=== PATIENT | female | born 1965 | race Caucasian/White ===

== ENCOUNTER → 2020-10-01 12:52 | Outpatient (CLI) | payer BC, SELFPAY ==
--- NOTE | ~2020-10-01 | MR_ITS ---
EXAMINATION: MR lumbar spine wo con DATE: 10/01/2020 14:48 INDICATION: Low back pain. TECHNIQUE: Magnetic resonance imaging (MRI) of the lumbar spine was performed without intravenous con trast. Sequences included sagittal T2-weighted FSE, sagittal T2-weighted FS FSE, sagittal T1-weighted FSE, and axial T2-weighted FSE. COMPARISON: None FINDINGS: There is 8 degrees dextrocurvature of lumbar spine. Vertebral body heights are normal. Ther e is moderately decreased disc height at L5-S1. The distal spinal cord signal intensity is normal. Th e conus medullaris is at L1-L2. The following disc levels are specifically discussed: L1-L2: The disc does not extend beyond the endplate margin. There is no facet joint osteoarthritis. T here is no neural foraminal stenosis. There is no central canal stenosis. L2-L3: There is a right foraminal protrusion. There is mild bilateral facet joint osteoarthritis. The re is mild right neural foraminal stenosis. There is no central canal stenosis. L3-L4: The disc is mildly bulging. There is mild bilateral facet joint osteoarthritis. There is mild right neural foraminal stenosis. There is no central canal stenosis. L4-L5: The disc is mildly bulging. There is severe bilateral facet joint osteoarthritis. There is mil d bilateral neural foraminal stenosis. There is mild central canal stenosis. L5-S1: The disc is bulging. There is moderate right facet joint osteoarthritis. There is mild bilater al neural foraminal stenosis. There is mild central canal stenosis. IMPRESSION: 1. Moderate lower lumbar spondylosis. Reviewed, dictated and finalized at location A. HUSK BALER
--- NOTE | ~2020-10-01 | MR_ITS ---
EXAMINATION: MR hip RT wo con DATE: 10/01/2020 14:48 INDICATION: Right hip pain TECHNIQUE: Magnetic resonance imaging (MRI) of the right hip was performed without intravenous contr ast. Sequences included full-field axial PD-weighted FS FSE and T1-weighted FSE, coronal of the pelvi s with PD-weighted FS FSE, small field of view of the right hip with axial PD-weighted FS FSE, sagit nicky PD-weighted FS FSE and coronal PD weighted FS FSE. Additional radial T1-weighted FGR oriented ort hogonal to the acetabular rim were obtained for evaluation of the labrum. COMPARISON: None FINDINGS: Bones/labrum/cartilage: Mild lumbar dextrocurvature with moderate lower lumbar spondylosis. Normal alignment at the bilateral hips. No fracture, avascular necrosis or pathologic marrow replacing process. Labrum is normal. Part ial-thickness cartilage loss with smooth chondral surface at the anterior and posterior aspect of the left hip joint space. There is partial thickness chondral fissuring without degenerative subchondral changes at the anterosuperior left acetabulum. Fluid: Symmetric physiologic amount of fluid within both hip joints. Soft tissues: Nonspecific asymmetric increased muscle signal in the right erector spinae muscle at the level of L5 and S1. Otherwise normal and symmetric muscle bulk and signal in the pelvis and visualized proximal t highs. The iliopsoas, gluteal and proximal hamstring tendons are normal. The uterus is not identified and has likely been surgically resected. Limited evaluation of visceral organs of the pelvis is unr emarkable. No pathologically enlarged pelvic/inguinal lymphadenopathy. IMPRESSION: 1. Mild right hip osteoarthritis. 2. Nonspecific mild increased muscle signal at the inferior right erector spinae muscle at the level of L5 and S1 which is of indeterminate etiology or significance. Differential includes low-grade musc le strain, response to denervation injury or nonspecific myositis which would have a wide differentia l including infection and multiple inflammatory/rheumatologic/connective tissue diseases. Reviewed, dictated and finalized at location A. ING MACHINE COIN COLLECTOR IMPRESSION: 1. Mild right hip osteoarthritis. 2. Nonspecific mild increased muscle signal at the inferior right erector spina e muscle at the level of L5 and S1 which is of indeterminate etiology or signif icance. Differential includes low-grade muscle strain, response to denervation injury or nonspecific myositis which would have a wide differential including i nfection and multiple inflammatory/rheumatologic/connective tissue diseases.
== END ==
DX: M47.817 Spondylosis without myelopathy or radiculopathy, lumbosacral region (principal); M16.11 Unilateral primary osteoarthritis, right hip; M48.07 Spinal stenosis, lumbosacral region
CPT/HCPCS: 72148; 73721

== ENCOUNTER → 2020-10-22 08:49 | Outpatient (CLI) | payer BC, SELFPAY ==
--- NOTE | ~2020-10-22 | MR_ITS ---
EXAMINATION: MR ankle LT wo/w con DATE: 10/22/2020 10:19 INDICATION: Left ankle pain and swelling. TECHNIQUE: Magnetic resonance imaging (MRI) of the left ankle was performed without and with 15 mL Mu ltiHance intravenous contrast. Sequences included axial T1-weighted FS FSE and sagittal, coronal, and axial T2-weighted FS FSE, T1-weighted FSE, and postcontrast T1-weighted FS FSE. COMPARISON: None. FINDINGS: Medial ankle ligaments: The superficial and deep components of the deltoid ligament are normal. Lateral ankle ligaments: Anterior and posterior talofibular ligaments, calcaneofibular ligament, and posterior tibiofibular li gaments are normal. There are changes of prior sprain of anterior tibiofibular ligament characterized by increased signal intensity. Tendons: The medial and anterior ankle tendons are normal. The peroneal tendons are normal. There is mild Achi lles tendinopathy. Plantar fascia: Normal. Bones/other: Bone alignment is normal. No fracture. The talar dome is normal. There is mild osteoarthritis of firs t tarsometatarsal joint and calcaneocuboid joint. There are foci of susceptibility artifact at the sk in medial to the ankle, lateral to fibular tip, and posterior to the Achilles tendon. There is mild f atty atrophy in some of the musculature. Fluid: There is no joint effusion. IMPRESSION: 1. Mild polyarticular osteoarthritis. 2. Foci of susceptibility artifact at the medial, lateral, and posterior aspects of the ankle that ma y be small foreign bodies on the skin or in the subcutaneous fat. This would be an expected finding i s there were prior surgery at these sites. 3. Changes of prior lateral ankle sprain. Reviewed, dictated and finalized at location A. STRAP SEWER IMPRESSION: 1. Mild polyarticular osteoarthritis. 2. Foci of susceptibility artifact at the medial, lateral, and posterior aspect s of the ankle that may be small foreign bodies on the skin or in the subcutane ous fat. This would be an expected finding is there were prior surgery at these sites. 3. Changes of prior lateral ankle sprain.
--- NOTE | ~2020-10-22 | MR_ITS ---
EXAMINATION: MR foot LT wo/w con DATE: 10/22/2020 10:34 INDICATION: Left foot pain and swelling. TECHNIQUE: Magnetic resonance imaging (MRI) of the left foot was performed without and with 15 mmol M ultiHance intravenous contrast. Sequences included sagittal STIR FSE and T1-weighted FSE and short-ax is and long-axis T1-weighted FSE and T2-weighted FS FSE. Postcontrast sequences included short-axis a nd long-axis T1-weighted FS FSE. COMPARISON: None FINDINGS: Bone alignment is normal. No fracture. The bone marrow signal intensity is normal. No joint effusion. Lisfranc ligament is normal. The flexor and extensor tendons are normal. The musculature i s normal. There are foci of susceptibility artifact at the skin plantar to the first and second metat arsals. IMPRESSION: 1. Foci of susceptibility artifact at the skin plantar to the first and second metatarsals, which may be tiny foreign bodies on the skin or in the subcutaneous fat. Reviewed, dictated and finalized at location A. PRODUCTION SUPERVISOR IMPRESSION: 1. Foci of susceptibility artifact at the skin plantar to the first and second metatarsals, which may be tiny foreign bodies on the skin or in the subcutaneou s fat.
[2020-10-22 09:15] LABS: Estimated Glomerular Filt Rate > 60
== END ==
DX: M25.472 Effusion, left ankle (principal); M19.072 Primary osteoarthritis, left ankle and foot; S93.402D Sprain of unspecified ligament of left ankle, subsequent encounter; X58.XXXD Exposure to other specified factors, subsequent encounter
CPT/HCPCS: 73720; 73723; A9577

== ENCOUNTER → 2021-06-04 13:31 | Outpatient (CLI) | payer BC, SELFPAY ==
--- NOTE | ~2021-06-04 | XR_ITS ---
XR hip BI wo pelvis DATE: 06/04/2021 14:44 INDICATION: Right hip pain TECHNIQUE: AP, lateral views of each hip COMPARISON: None FINDINGS: Osteopenia. No fracture or dislocation, avascular necrosis or bone destruction of either hi p is evident. Hip joint spaces appear symmetric and relatively preserved. Surgical clips overlie the right lower abdomen. The pubic symphysis and sacroiliac joints appear intact. IMPRESSION: Osteopenia Reviewed, dictated and finalized at location B. IMPRESSION: Osteopenia
== END ==
DX: M85.851 Other specified disorders of bone density and structure, right thigh (principal)
CPT/HCPCS: 73521

== ENCOUNTER → 2021-08-18 14:50 | Outpatient (CLI) | payer BC, SELFPAY ==
--- NOTE | ~2021-08-18 | CT_ITS ---
EXAMINATION: CT abdomen pelvis w con INDICATION: Right lower quadrant pain TECHNIQUE: Computed tomographic images of the abdomen and pelvis were obtained after the administrati on of 100 cc of Omnipaque 350 intravenous contrast. The dose-length product (DLP) was 656.46 mGy-cm. Automated exposure control and iterative reconstruction technique were employed. COMPARISON: None available FINDINGS: Minimal dependent atelectasis is present in the lung bases. The heart size is normal. A Por t-A-Cath tip ends in the right atrium. There are multiple liver masses with interrupted peripheral no dular enhancement, consistent with hemangiomas. The largest measures 3.1 cm in liver segment Raoul. The gallbladder is surgically absent. Pancreas, and adrenal glands are normal. Hypoattenuating lesions o f the spleen measuring up to 1.3 cm likely reflect hemangiomas or lymphangiomas. There is an [address] of the left kidney. The right kidney is unremarkable. No pathologically enlarged abdominal or pelv ic lymph nodes are identified. There is no free intraperitoneal gas or evidence of bowel obstruction. There are surgical changes of appendectomy. There is mild lumbar spondylosis. A hemangioma is noted in the L2 vertebral body. IMPRESSION: 1. No CT correlate for the patient's symptoms. Reviewed, dictated and finalized at location A.
[2021-08-18 15:10] LABS: Estimated Glomerular Filt Rate > 60
== END ==
DX: R10.84 Generalized abdominal pain (principal); N28.1 Cyst of kidney, acquired; M47.816 Spondylosis without myelopathy or radiculopathy, lumbar region; D18.09 Hemangioma of other sites
CPT/HCPCS: 74177; Q9967

== ENCOUNTER → 2022-03-30 17:24 | Outpatient (CLI) | payer BC, SELFPAY ==
--- NOTE | ~2022-03-30 | XR_ITS ---
EXAMINATION: XR foot RT 2V INDICATION: Right foot pain TECHNIQUE: Two views of the right foot are obtained. COMPARISON: None available FINDINGS: There is mild osteoarthritis of multiple interphalangeal joints. No fracture is identified. There is dorsal soft tissue swelling of the foot overlying the distal metatarsals. An orthopedic scr ew is noted in the first metatarsal. IMPRESSION: 1. Soft tissue swelling without acute osseous abnormality. Reviewed, dictated and finalized at location F.
== END ==
DX: M79.671 Pain in right foot (principal); M79.89 Other specified soft tissue disorders
CPT/HCPCS: 73620

== ENCOUNTER → 2022-04-13 13:48 | Outpatient (CLI) | payer BC, SELFPAY ==
--- NOTE | ~2022-04-13 | MR_ITS ---
EXAMINATION: MR knee RT wo con DATE: 04/13/2022 14:28 INDICATION: Medial meniscal tear with right knee pain. TECHNIQUE: Magnetic resonance imaging (MRI) of the right knee was performed without intravenous contr ast. Sequences included coronal PD-weighted FSE, coronal PD-weighted FS FSE, sagittal T2-weighted FS E, sagittal PD-weighted FS FSE and axial PD weighted fat saturated FSE. COMPARISON: None. FINDINGS: Medial compartment: Medial meniscus is normal. Deep chondral ulceration with mild underlying cortical irregularity and mi ld subarticular edema-like signal change at the central to anterior aspect of the medial tibial plate au. Additional deep chondral ulceration without degenerative subchondral changes at the anterior weig htbearing medial femoral condyle. A severe partial thickness cartilage loss along the central weightb earing medial femoral condyle. Lateral compartment: Lateral meniscus is normal. Additional deep chondral ulceration with associated cortical irregularity and mild subarticular edema-like signal change at the central to posterior aspect of the lateral tib ial plateau. Mild partial-thickness cartilage loss along the anterior weightbearing medial femoral co ndyle. Partial-thickness chondral fissuring at the posterior weightbearing lateral femoral condyle. Patellofemoral compartment: Deep chondral ulceration with mild underlying edema-like marrow signal change at the patellar apical ridge and medial aspect of the lateral patellar facet. Less severe partial thickness cartilage loss a long the medial patellar facet. Partial-thickness chondral ulceration and fissuring without degenerat salvatore subchondral changes at the trochlear groove and immediately adjacent medial and lateral trochlea. Ligaments and tendons: Anterior and posterior cruciate ligaments are normal. The medial collateral ligament and fibular charmaine ateral ligament complex are normal. Mild patellar and quadriceps tendinopathy without discrete tear. The visualized medial and lateral hamstring tendons as well as the iliotibial band are normal. Fluid: Physiologic amount of fluid in the joint space. No loose osteochondral bodies identified. Small focus of susceptibility artifact at the suprapatellar pouch suggesting prior instrumentation either surger y or joint aspiration/injection. Osseous/other: Bone alignment is normal. No fracture or pathologic marrow replacing process. IMPRESSION: 1. Moderate medial compartment predominant tricompartmental osteoarthritis with regions of high-grade chondromalacia in all 3 compartments. Reviewed, dictated and finalized at location A.
== END ==
DX: M25.561 Pain in right knee (principal); M94.261 Chondromalacia, right knee
CPT/HCPCS: 73721

== ENCOUNTER → 2022-08-19 14:05 | Outpatient (CLI) | payer BC, SELFPAY ==
--- NOTE | ~2022-08-19 | XR_ITS ---
EXAMINATION: XR chest 2V 08/19/2022 14:34 INDICATION: Shortness of breath. Chest pain. Lupus. PROCEDURE: PA and lateral views of the chest COMPARISON: 10/29/2013 FINDINGS: The lungs are clear. Portacatheter tip in the SVC. The cardiomediastinal silhouette is with in normal limits. There are no pleural effusions. There is no pneumothorax suspected. IMPRESSION: 1: NO ACUTE CARDIOPULMONARY DISEASE. Reviewed, dictated and finalized at location A.
== END ==
DX: R06.02 Shortness of breath (principal)
CPT/HCPCS: 71046

== ENCOUNTER → 2022-10-28 14:26 | Outpatient (CLI) | payer BC, SELFPAY ==
--- NOTE | ~2022-10-28 | XR_ITS ---
EXAMINATION: XR hip BI wo pelvis INDICATION: Polyarticular psoriatic arthritis TECHNIQUE: Two views of each hip are obtained. COMPARISON: 06/04/2021 FINDINGS: Bone alignment is normal. There is no fracture. There is mild osteoarthritis of the hips. P hleboliths are noted in the pelvis. There are surgical clips in the right lower quadrant. IMPRESSION: 1. Mild osteoarthritis. Reviewed, dictated and finalized at location L. CAR MAKE READY MECHANIC IMPRESSION: 1. Mild osteoarthritis.
== END ==
PROVIDERS: Visit Provider Nurse Practitioner
DX: L40.59 Other psoriatic arthropathy (principal); M25.551 Pain in right hip; M16.0 Bilateral primary osteoarthritis of hip
CPT/HCPCS: 73521

== ENCOUNTER 2023-03-01 15:02 | Emergency (ER) | payer BC, SELFPAY ==
[2023-03-01 15:21] VITALS: BP 131/77; PULSE 60; RESP 16; TEMP 35.9; O2SAT 100
--- NOTE | 2023-03-01 15:31 | ED.URI ---
HPI - URI/Sore Throat General Chief Complaint: Upper Respiratory Infection Stated Complaint: SORE THROAT Time Seen by Provider: 03/01/23 15:11 Source: patient and RN notes reviewed History of Present Illness HPI Narrative: Patient is a 57-year-old female who presents to urgent care with complaints of a sore throat since . Patient states that she was inpatient hospital recently and had a follow-up with her GI doctor yesterday who told her her throat looked red. Patient denies any fever, nausea or vomiting. No other acute complaints. No acute distress noted. Patient aware of the plan of care. Some parts of this dictation were generated by voice recognition software and may contain typographical and/or grammatical inaccuracies. Related Data Allergies Allergy/AdvReac Type Severity Reaction Status Date / Time adhesive Allergy Unknown Hives Verified 03/01/23 15:19 Influenza Virus Vaccines Allergy Unknown Swelling Verified 03/01/23 15:19 tetracycline Allergy Unknown Other Verified 03/01/23 15:19 cefdinir Allergy Other Verified 03/01/23 15:19 DOXYCYCLINE CALCIUM Allergy Unknown Other Uncoded 03/01/23 15:19 DOXYCYCLINE HYCLATE Allergy Unknown Other Uncoded 03/01/23 15:19 DOXYCYCLINE MONOHYDRATE Allergy Unknown Other Uncoded 03/01/23 15:19 HYDROCODONE BIT AdvReac Unknown ITCHING Uncoded 12/19/14 10:24 Review of Systems Review of Systems: CONSTITUTIONAL: Denies fever, chills, or sweats. EYES: Denies visual changes, redness, or discharge. ENT: Denies rhinorrhea, congestion, otalgia. Reports of sore throat CARDIOVASCULAR: Denies chest pain, palpitations, or edema. RESPIRATORY: Denies cough or dyspnea. GASTROINTESTINAL: Denies abdominal pain, nausea, vomiting, or diarrhea. GENITOURINARY: Denies dysuria or hematuria. SKIN: Denies rash or itching. MUSCULOSKELETAL: Denies back pain, joint pain, or myalgia. NEUROLOGIC: Denies headache, numbness, or weakness. All other systems reviewed are negative, except as documented in HPI. PMFSH Comments At the time of my signature, I reviewed and agree with the nursing past medical, surgical, social, and family history. There is no relevant family history pertinent to the patient complaint. Exam Narrative: GENERAL: This is a well-nourished, well-developed patient, in no apparent distress. HEAD: normocephalic, atraumatic. EYES: PERRL. Sclera clear/white. Vision is grossly intact. EARS: External ears normal, auditory canals clear and without drainage, TMs normal without perforation. Hearing grossly intact. NOSE: External nose normal with no obvious nasal discharge, nares without redness, no rhinorrhea. THROAT: Mucous membranes moist, posterior pharynx clear. Mild postnasal drainage NECK: Neck supple, RESPIRATORY: Clear to auscultation. Breath sounds equal bilaterally. No wheezes, rales, or rhonchi. SKIN: warm, intact with no suspicious lesions or rash, good texture and turgor. NEURO: awake, alert, and oriented to person, place and time. There were no obvious focal neurologic abnormalities. EXTREMITIES: No clubbing, cyanosis, or edema. Course Course Level of Care: Express Care Visit Vital Signs Vital signs: Vital Signs Temperature 96.7 F L 03/01/23 15:21 Pulse Rate 60 03/01/23 15:21 Respiratory Rate 16 03/01/23 15:21 Blood Pressure 131/77 03/01/23 15:21 Pulse Oximetry 100 03/01/23 15:21 Temperature 96.7 F L 03/01/23 15:21 Pulse Rate 60 03/01/23 15:21 Respiratory Rate 16 03/01/23 15:21 Blood Pressure 131/77 03/01/23 15:21 Pulse Oximetry 100 03/01/23 15:21 Reviewed MDM - URI/Sore Throat MDM Narrative Medical decision making narrative: Reviewed lab results with the patient. She is aware that strep swab was negative. Educated the patient on culture we will call within 72 hours if culture is positive antibiotics are necessary. Advised patient to use Benadryl and Flonase prior to bedtime to help with postnasal drainage and inflammation. Us
== END 2023-03-01 15:43 | disposition home or self-care (01) ==
PROVIDERS: Emergency Provider Nurse Practitioner Family
DX: J02.9 Acute pharyngitis, unspecified (principal); E78.00 Pure hypercholesterolemia, unspecified; I10 Essential (primary) hypertension; K50.90 Crohn's disease, unspecified, without complications; M32.9 Systemic lupus erythematosus, unspecified; Q87.19 Other congenital malformation syndromes predominantly associated with short stature
CPT/HCPCS: 87081; 87880; 99203; G0463

== ENCOUNTER → 2023-10-21 10:43 | Outpatient (CLI) | payer BC, SELFPAY ==
--- NOTE | ~2023-10-21 | XR_ITS ---
AP and lateral views of the left hip Clinical history: Pain Findings: No acute fracture or dislocation is seen. Osseous alignment is anatomic. Bilateral hip and SI joint spaces are preserved. Soft tissues are unremarkable. Impression: No significant abnormality is seen. Reviewed, dictated and finalized at location M. NARY ART TEACHER Impression: No significant abnormality is seen.
== END ==
PROVIDERS: PCP Nurse Practitioner
DX: M25.551 Pain in right hip (principal); M25.552 Pain in left hip
CPT/HCPCS: 73502

== ENCOUNTER 2023-11-08 15:56 | Emergency (ER) | payer BC, SELFPAY ==
--- NOTE | ~2023-11-08 | XR_ITS ---
EXAM: XR knee RT min 4V DATE: 11/08/2023 19:01 HISTORY: recent replacement, pain . COMPARISON: None available. FINDINGS: Decreased mineralization. Uncomplicated right knee arthroplasty hardware. No fracture or d islocation. No lytic or blastic lesion. Joint spaces are maintained. No erosion or periosteal change. Moderate volume joint effusion. IMPRESSION: No acute osseous finding in the right knee. No hardware related complication. Moderate right knee joint effusion. Reviewed, dictated and finalized at location K. D ARTILLERY OFFICER
--- NOTE | ~2023-11-08 | US_ITS ---
EXAMINATION: US venous doppler LE RT DATE: 11/08/2023 17:53 INDICATION: R/O DVT . TECHNIQUE: Grayscale images without and with compression and Doppler images of the right lower extrem ity veins were obtained. COMPARISON: None FINDINGS: The right common femoral vein, profunda (deep) femoral vein, femoral vein, popliteal vein, peroneal v ein, posterior tibial veins, gastrocnemius vein, and greater saphenous vein are patent. IMPRESSION: Patent right lower extremity veins. No evidence of deep venous thrombosis. Reviewed, dictated and finalized at location K. ESTATE BROKER
[2023-11-08 16:16] VITALS: BP 174/83; PULSE 66; RESP 18; TEMP 36.6; O2SAT 97
[2023-11-08 16:50] LABS: Basophils Percent Auto 0.6 % (0.2-1.2); Eosinophils Absolute Auto 0.1 K/mm3 (0-0.3); Eosinophils Percent Auto 2.1 % (0-4.4); Hematocrit 37.1 % (37.0-47.0); Hemoglobin 12.2 g/dL (12.0-15.0); Immature Granulocyte Absolute 0.03 K/mm3 (0.00-0.031); Immature Granulocyte Percent A 0.6 % (0-0.5); Lymphocytes Absolute Auto 1.67 K/mm3 (0.9-3.2); Lymphocytes Percent Auto 32.4 % (18.3-44.2); Mean Corpuscular HGB Conc 32.9 g/dl (32-36); Mean Corpuscular Hemoglobin 30.1 pg (26-34); Mean Corpuscular Volume 91.6 fl (80-100); Mean Platelet Volume 8.1 fl (7.4-10.4); Monocytes Absolute Auto 0.4 K/mm3 (0.1-0.6); Neutrophils Percent Auto 57.3 % (45.5-73.1); Platelet Count Result 359 k/mm3 (150-375); Red Blood Count 4.05 M/mm3 (4.2-5.4); Red Cell Distribution Width 14.4 % (11.5-14.5); White Blood Count 5.2 K/mm3 (4.5-10.0)
[2023-11-08 17:05] LABS: Alanine Aminotransferase 17 U/L (6-35); Albumin Level 4.6 g/dL (3.5-5.1); Alkaline Phosphatase 93 U/L (38-126); Anion Gap 10 mmol/L (8-16); Aspartate Amino Transferase 32 U/L (14-36); Bilirubin,Total 2.2 mg/dL (0.2-1.3); Blood Urea Nitrogen 14 mg/dL (7-17); Calcium 9.2 mg/dL (8.4-10.2); Carbon Dioxide 28 mmol/L (22-30); Chloride 105 mmol/L (98-107); Estimated Glomerular Filt Rate > 60; Glucose 92 mg/dL (65-110); Potassium 3.7 mmol/L (3.4-5.0); Sodium 143 mmol/L (137-145)
[2023-11-08 17:19] LABS: INR 1.7; Prothrombin Time 20.8 Seconds (11.1-14.7)
--- NOTE | 2023-11-08 17:57 | ED.EXTPRO ---
HPI - Extremity Problem General Chief complaint: Extremity Problem,Nontraumatic <Val Mccarty PA-C - Last Filed: 11/08/23 18:16> Stated complaint: right leg swelling/pain <JOHN Floyd Last Filed: 11/08/23 18:16> Time Seen by Provider: 11/08/23 19:22 <JOHN Floyd Last Filed: 11/08/23 18:16> Source: patient <JOHN Floyd Last Filed: 11/08/23 18:16> Mode of arrival: ambulatory <JOHN Floyd Last Filed: 11/08/23 18:16> Limitations: no limitations <JOHN Floyd Last Filed: 11/08/23 18:16> History of Present Illness HPI Narrative: Patient is a 58-year-old female who presents the ED with report of right lower extremity pain. Patient reports she underwent right knee replacement by Dr. Scotty Evangelista at [facility] on 10/28/23. She states she has been doing fairly well since surgery, the knee has been healing appropriately. Over last 4 days, patient has had progressively worsening pain in her right calf. She states this feels different for the pain in her right knee. Pain worse with ambulation. She was seen at [facility] in the last 2 days and had a negative venous Doppler ultrasound. Patient was referred here today due to pain. She is prescribed OxyContin for her pain, but states it does not alleviate the calf pain. She has noticed some swelling and bruising. Denies fever, drainage from her incision, chest pain, shortness breath. Denies numbness or tingling. <JOHN Floyd Last Filed: 11/08/23 18:16> Related Data Allergies/Adverse reactions: Allergies Allergy/AdvReac Type Severity Reaction Status Date / Time adhesive Allergy Unknown Hives Verified 11/08/23 19:11 Influenza Virus Vaccines Allergy Unknown Swelling Verified 11/08/23 19:11 tetracycline Allergy Unknown Other Verified 11/08/23 19:11 cefdinir Allergy Other Verified 11/08/23 19:11 DOXYCYCLINE CALCIUM Allergy Unknown Other Uncoded 11/08/23 19:11 DOXYCYCLINE HYCLATE Allergy Unknown Other Uncoded 11/08/23 19:11 DOXYCYCLINE MONOHYDRATE Allergy Unknown Other Uncoded 11/08/23 19:11 HYDROCODONE BIT AdvReac Unknown ITCHING Uncoded 11/08/23 19:11 <JOHN Floyd Last Filed: 11/08/23 18:16> Review of Systems Review of Systems: CONSTITUTIONAL: Denies fever, chills, or sweats. CARDIOVASCULAR: Denies chest pain. RESPIRATORY: Denies dyspnea. MUSCULOSKELETAL: See HPI. NEUROLOGIC: Denies headache, dizziness, numbness, or weakness. <JOHN Floyd Last Filed: 11/08/23 18:16> All systems reviewed & are unremarkable except as noted in HPI and below <JOHN Floyd Last Filed: 11/08/23 18:16> Exam Narrative: GENERAL: Uncomfortable appearing, well-nourished, non-toxic, in no acute distress. HEAD: Normocephalic, atraumatic. RESPIRATORY: Airway patent, respirations nonlabored. CARDIOVASCULAR: Regular rate and rhythm. Pedal pulses 2+ bilaterally. MUSCULOSKELETAL: Limited range of motion of right knee due to pain. Diffuse ecchymosis and yellow discoloration to medial/posterior right calf, diffuse tenderness to palpation. Large postop bandage in place over anterior knee. No evidence of drainage or soiling of bandage. Right knee joint around bandage does appear mildly erythematous and warm to the touch. Mild swelling noted to right knee joint. No swelling in R foot. Capillary refill intact of R toes. Normal temperature of R foot/toes. SKIN: Warm, dry, normal color. NEURO: A&O X3. Speech clear. Cranial nerves II-XII grossly intact. No ataxic movements. PSYCHIATRIC: Appropriate mood and affect. Normal interaction. <JOHN Floyd Last Filed: 11/08/23 18:16> Course Vital Signs Vital signs: Vital Signs Temperature 36.6 C 11/08/23 16:16 Pulse Rate 66 11/08/23 16:16 Respiratory Rate 18 11/08/23 16:16 Blood Pressure 174/83 H 11/08/23 16:16
[2023-11-08] MEDS: traMADol HCL (*CRX) 25 MG TABLET PO (18:14)
[2023-11-08 18:58] LABS: CRP < 0.5 mg/dL (<1.0)
[2023-11-08 19:00] VITALS: BP 183/90; PULSE 65; RESP 14; O2SAT 100
[2023-11-08 19:14] LABS: Erythrocyte Sedimentation Rate 48 mm/hr (0-20)
[2023-11-08 20:45] VITALS: BP 165/87; PULSE 88; RESP 14; O2SAT 97
== END 2023-11-08 20:45 | disposition home or self-care (01) ==
PROVIDERS: Emergency Medicine; Physician Assistant; Emergency Provider Emergency Medicine
DX: M79.661 Pain in right lower leg (principal)
CPT/HCPCS: 36415; 73564; 80053; 85025; 85610; 85652; 86140; 93971; 99284; A9270

== ENCOUNTER 2024-01-29 10:47 | Emergency (ER) | payer BC, SELFPAY ==
[2024-01-29 10:54] VITALS: BP 136/90; PULSE 83; RESP 16; TEMP 37; O2SAT 97
--- NOTE | 2024-01-29 11:11 | ED.GENADULT ---
HPI - General Adult General Chief complaint: Upper Respiratory Infection Stated complaint: SORE THROAT Time Seen by Provider: 01/29/24 11:11 Source: patient Mode of arrival: ambulatory Limitations: no limitations History of Present Illness HPI narrative: 58-year-old female patient presents to the [facility] with complaints of a sore throat that started yesterday. Patient states she has also had bilateral ear pain, a cough, congestion, sneezing, fevers, body aches and chills. Patient states she does have a history of gastroparesis from complications of a previous COVID infections in which she does get infusions and is currently on prednisone. Patient states she chronically has abdominal pain, nausea, vomiting or diarrhea and diarrhea which is not new symptoms for her. Related Data Home Medications Medication Instructions Recorded Confirmed amitriptyline 25 mg tablet mg 01/29/24 atogepant 30 mg tablet (Qulipta) mg 01/29/24 ergocalciferol (vitamin D2) 1,250 01/29/24 mcg (50,000 unit) capsule gabapentin 300 mg capsule mg 01/29/24 linaclotide 290 mcg capsule mcg 01/29/24 (Linzess) lorazepam 1 mg tablet mg 01/29/24 prednisone 5 mg tablet mg 01/29/24 tizanidine 4 mg tablet mg 01/29/24 tramadol 50 mg tablet mg 01/29/24 Allergies Allergy/AdvReac Type Severity Reaction Status Date / Time adhesive Allergy Unknown Hives Verified 01/29/24 10:56 Influenza Virus Vaccines Allergy Unknown Swelling Verified 01/29/24 10:56 tetracycline Allergy Unknown Other Verified 01/29/24 10:56 cefdinir Allergy Other Verified 01/29/24 10:56 ketorolac [From Toradol] Allergy Hives Verified 01/29/24 11:11 DOXYCYCLINE CALCIUM Allergy Unknown Other Uncoded 01/29/24 10:56 DOXYCYCLINE HYCLATE Allergy Unknown Other Uncoded 01/29/24 10:56 DOXYCYCLINE MONOHYDRATE Allergy Unknown Other Uncoded 01/29/24 10:56 HYDROCODONE BIT AdvReac Unknown ITCHING Uncoded 01/29/24 10:56 Review of Systems Review of Systems: CONSTITUTIONAL: Positive subjective fever, body aches,chills, or sweats. EYES: Denies visual changes, redness, or discharge. ENT: positive rhinorrhea, congestion, sore throat, and bilateral otalgia. CARDIOVASCULAR: Denies chest pain, palpitations, or edema. RESPIRATORY: positive cough or dyspnea. GASTROINTESTINAL: positive chronic abdominal pain, nausea, vomiting, or diarrhea. GENITOURINARY: Denies dysuria or hematuria. SKIN: Denies rash or itching. MUSCULOSKELETAL: Denies back pain, joint pain, or myalgia. NEUROLOGIC: Denies headache, numbness, or weakness. PSYCHIATRIC: Denies anxiety or depression. [facility] Past Medical History Medical History (Updated 01/29/24 @ 11:39 by VILMA Fontaine) Gastroparesis Comments At the time of my signature I agree with nursing past medical history, surgical, social, and family history. There is no relevant family history pertinent to the presenting complaint. Exam Narrative: GENERAL: Well-appearing, well-nourished, and in no acute distress. HEAD: Normocephalic, atraumatic. EYES: PERRLA and EOMI. ENT: Nares with erythema edema noted bilaterally, no rhinorrhea or epistaxis. Mucous membranes moist. posterior pharynx with some postnasal drip noted but no erythema, tonsillar enlargement, exudates or lesions present. Bilateral TMs are clear no erythema or foreign bodies canal. NECK: Supple. No lymphadenopathy CHEST: Clear to auscultation. No respiratory distress. Patient able talk in clear complete sentences. HEART: Regular rate and rhythm. No murmur heard. Normal peripheral pulses. ABDOMEN: Soft, nontender, nondistended, normal active bowel sounds. EXTREMITIES: Normal range of motion. No edema. SKIN: Warm, dry, no rash. NEURO: No focal deficits. Alert and oriented x3. Course Course Level of Care: Express Care Visit Reevaluation(s) Reevaluation #1: Re-evaluated patient after point of care testing was completed. Notified patient she is negative today for influenza, COVID a
== END 2024-01-29 11:40 | disposition home or self-care (01) ==
PROVIDERS: Emergency Provider Nurse Practitioner Family
DX: J06.9 Acute upper respiratory infection, unspecified (principal); J30.9 Allergic rhinitis, unspecified; Z20.822 Contact with and (suspected) exposure to COVID-19; K31.84 Gastroparesis
CPT/HCPCS: 87081; 87426; 87804; 87880; 99213; G0463

== ENCOUNTER 2024-01-29 19:12 | Emergency (ER) | payer BC, SELFPAY ==
[2024-01-29 19:23] VITALS: BP 138/92; PULSE 81; RESP 18; TEMP 37.9; O2SAT 98
[2024-01-29 20:03] LABS: Strep Group A RT-PCR NOT DETECTED (Negative)
[2024-01-29 20:14] LABS: Influenza A QL RT-PCR Negative (Negative); Influenza B QL RT-PCR Negative (Negative); RSV RNA, RT-PCR Negative (Negative); SARS-CoV-2 RNA PCR Positive (Negative)
--- NOTE | 2024-01-29 21:24 | ED.GENADULT ---
HPI - General Adult General Chief complaint: Unspecified Stated complaint: sore throat Time Seen by Provider: 01/29/24 20:12 History of Present Illness HPI narrative: This is a 58-year-old female history of lupus, psoriatic arthritis, Crohn's disease, adrenal insufficiency on TPN presenting for sore throat, fevers and cough. She was seen in urgent care earlier today and had negative strep COVID. Patient denies chest pain difficulty breathing or abdominal pain. She has had some vomiting although that is normal occurrence for her. Patient has been taking stress dose steroids. Related Data Home Medications Medication Instructions Recorded Confirmed amitriptyline 25 mg tablet mg 01/29/24 atogepant 30 mg tablet (Qulipta) mg 01/29/24 ergocalciferol (vitamin D2) 1,250 01/29/24 mcg (50,000 unit) capsule gabapentin 300 mg capsule mg 01/29/24 linaclotide 290 mcg capsule mcg 01/29/24 (Linzess) lorazepam 1 mg tablet mg 01/29/24 prednisone 5 mg tablet mg 01/29/24 tizanidine 4 mg tablet mg 01/29/24 tramadol 50 mg tablet mg 01/29/24 Allergies Allergy/AdvReac Type Severity Reaction Status Date / Time adhesive Allergy Unknown Hives Verified 01/29/24 19:26 Influenza Virus Vaccines Allergy Unknown Swelling Verified 01/29/24 19:26 tetracycline Allergy Unknown Other Verified 01/29/24 19:26 cefdinir Allergy Other Verified 01/29/24 19:26 ketorolac [From Toradol] Allergy Hives Verified 01/29/24 19:26 DOXYCYCLINE CALCIUM Allergy Unknown Other Uncoded 01/29/24 19:26 DOXYCYCLINE HYCLATE Allergy Unknown Other Uncoded 01/29/24 19:26 DOXYCYCLINE MONOHYDRATE Allergy Unknown Other Uncoded 01/29/24 19:26 HYDROCODONE BIT AdvReac Unknown ITCHING Uncoded 01/29/24 19:26 [facility] Past Medical History Medical History Adrenal insufficiency Gastroparesis Lupus On total parenteral nutrition (TPN) Exam Narrative: APPEARANCE: No apparent distress. Head: Mild erythema of the posterior oropharynx, no tonsillar exudates or swelling EYES: EOMI, NOSE: Atraumatic NECK: Trachea midline RESPIRATORY: No increased rate of breathing, clear to auscultation CARDIOVASCULAR: RRR, ABDOMINAL: Non-distended soft nontender MUSCULOSKELETAl: No obvious deformities NEURO: Alert. Moving 4/4 extremities SKIN:: Warm, dry. Normal color PSYCHIATRIC: Normal affect Course Vital Signs Vital signs: Vital Signs Temperature 100.2 F H 01/29/24 19:23 Pulse Rate 81 01/29/24 19:23 Respiratory Rate 18 01/29/24 19:23 Blood Pressure 138/92 H 01/29/24 19:23 Pulse Oximetry 98 01/29/24 19:23 Oxygen Delivery Room Air 01/29/24 19:23 Temperature 100.2 F H 01/29/24 19:23 Pulse Rate 81 01/29/24 19:23 Respiratory Rate 18 01/29/24 19:23 Blood Pressure 138/92 H 01/29/24 19:23 Pulse Oximetry 98 01/29/24 19:23 Oxygen Delivery Room Air 01/29/24 19:23 Medical Decision Making MDM Narrative Medical decision making narrative: -Course: 58-year-old female presenting sore throat fevers. Found to be COVID positive. Patient is immunocompromised and we discussed doing more invasive workup, patient says that outside of the cough and sore throat she feels well overall. Heart rate/blood pressure within normal limits. Slightly febrile. She is comfortable following up with her primary care physician at her regular appointment tomorrow. Patient given strict return precautions. -DDX includes but is not limited to: Viral illness, sepsis, UTI, pneumonia strep throat -Co-morbidities complicating care: Lupus, psoriatic arthritis, gastroparesis -Independent interpretation of studies: COVID positive -Shared decision making / Disposition: Discharged -RX Tylenol Vital Signs Vital Signs: Vital Signs Temperature 100.2 F H 01/29/24 19:23 Pulse Rate 81 01/29/24 19:23 Respiratory Rate 18 01/29/24 19:23 Blood Pressure 138/92 H 01/29/24 19:23 Pulse Oximetry 98 01/29/24 19:23 O
[2024-01-29] MEDS: ACETAMINOPHEN 500 MG TABLET 1000 MG PO (21:43)
[2024-01-29 21:50] VITALS: BP 117/73; PULSE 91; RESP 17; TEMP 37.2; O2SAT 99
== END 2024-01-29 21:52 | disposition home or self-care (01) ==
PROVIDERS: Emergency Provider Emergency Medicine
DX: U07.1 COVID-19 (principal); M32.9 Systemic lupus erythematosus, unspecified; L40.50 Arthropathic psoriasis, unspecified; K50.90 Crohn's disease, unspecified, without complications; E27.40 Unspecified adrenocortical insufficiency
CPT/HCPCS: 87081; 87426; 87637; 87651; 87804; 87880; 99283; A9270

== ENCOUNTER 2024-02-25 13:26 | Emergency (ER) | payer BC, SELFPAY ==
--- NOTE | ~2024-02-25 | XR_ITS ---
XR chest 1V portable DATE: 02/25/2024 14:04 INDICATION: PICC line verification TECHNIQUE: Portable AP chest on February 25, 2024 at 1402 hours COMPARISON: 08/19/2022 2 view chest FINDINGS: Left upper extremity PIC catheter tip overlies the superior cavoatrial junction. Right Port-A-Cath catheter tip overlies the superior vena cava near the right atrium. Normal heart size. No hilar or mediastinal enlargement. No pulmonary infiltrate or consolidation, ple ural effusion or pulmonary vascular congestion or thorax. IMPRESSION: Left upper extremity PIC catheter tip at superior cavoatrial junction Right Port-A-Cath catheter in the caudal aspect of superior vena cava No active cardiopulmonary disease Reviewed, dictated and finalized at location A. IMPRESSION: Left upper extremity PIC catheter tip at superior cavoatrial juncti on Right Port-A-Cath catheter in the caudal aspect of superior vena cava No active cardiopulmonary disease
--- NOTE | ~2024-02-25 | CT_ITS ---
EXAMINATION: CT abdomen pelvis w con DATE: 02/25/2024 15:31 INDICATION: abdominal pain TECHNIQUE: Computed tomography (CT) of the abdomen and pelvis was performed with 100 mL Omnipaque-350 intravenous contrast. Automated exposure control and iterative reconstruction technique were employe d. The dose-length product was 219.58 mGy-cm. COMPARISON: 08/18/2021. FINDINGS: Lower thorax: Catheter tip projects over the proximal right atrium. Right middle lobe scar. Bibasilar dependent atelectasis/scar. Liver: Multiple liver hemangiomas and lesions that are too small to characterize but likely represent cysts or hemangiomas. Biliary/Gallbladder: Gallbladder is absent. No bile duct dilation. Pancreas: No mass or duct dilation. Spleen: Subcentimeter hypodensities, likely cysts or hemangiomas Adrenals:No mass. Kidneys: No suspicious mass, obstructing stone, or hydronephrosis. Simple left midpole cyst. GI tract: Mild distal esophageal and gastric wall edema. No small or large bowel dilation. Status pos t appendectomy. Fluid-filled colon as can be seen with diarrheal illness. Mesentery/Peritoneum: No ascites, mass, or free air. Retroperitoneum: No mass. Atherosclerotic abdominal aortic and/or arterial calcifications. Pelvis: Normal urinary bladder. Absent uterus. The bilateral ovaries are not confidently identified. Small volume free pelvic fluid. Soft Tissues: Soft tissues and body wall unremarkable. Bones: No acute osseous finding. IMPRESSION: Mild esophagitis/gastritis. Fluid-filled colon as can be seen with diarrheal illness. Reviewed, dictated and finalized at location K.
[2024-02-25 13:33] VITALS: BP 154/89; PULSE 63; RESP 20; TEMP 36.8; O2SAT 100
[2024-02-25 14:16] LABS: Basophils Percent Auto 0.2 % (0.2-1.2); Eosinophils Absolute Auto 0.1 K/mm3 (0-0.3); Eosinophils Percent Auto 1.3 % (0-4.4); Hemoglobin 13.4 g/dL (12.0-15.0); Immature Granulocyte Absolute 0.01 K/mm3 (0.00-0.031); Immature Granulocyte Percent A 0.2 % (0-0.5); Lymphocytes Absolute Auto 1.59 K/mm3 (0.9-3.2); Lymphocytes Percent Auto 33.5 % (18.3-44.2); Mean Corpuscular HGB Conc 33.5 g/dl (32-36); Mean Corpuscular Volume 86.6 fl (80-100); Mean Platelet Volume 8.4 fl (7.4-10.4); Monocytes Absolute Auto 0.4 K/mm3 (0.1-0.6); Neutrophils Absolute Auto 2.7 K/mm3 (1.3-6.7); Neutrophils Percent Auto 56.8 % (45.5-73.1); Platelet Count Result 153 k/mm3 (150-375); Red Blood Count 4.62 M/mm3 (4.2-5.4); Red Cell Distribution Width 14.6 % (11.5-14.5); White Blood Count 4.8 K/mm3 (4.5-10.0)
[2024-02-25 14:26] LABS: Lactic Acid Reflex 1.6 mmol/L (0.7-2.0)
[2024-02-25 14:27] LABS: Alanine Aminotransferase 10 U/L (6-35); Albumin Level 4.6 g/dL (3.5-5.1); Alkaline Phosphatase 77 U/L (38-126); Anion Gap 7 mmol/L (4-12); Aspartate Amino Transferase 26 U/L (14-36); Bilirubin,Total 0.9 mg/dL (0.2-1.3); Blood Urea Nitrogen 21 mg/dL (7-17); Calcium 9.5 mg/dL (8.4-10.2); Carbon Dioxide 31 mmol/L (22-30); Chloride 104 mmol/L (98-107); Estimated CRCL calculation 69 ml/min; Estimated Glomerular Filt Rate > 60; Glucose 91 mg/dL (65-110); Lipase 75 U/L (23-300); Potassium 4.3 mmol/L (3.4-5.0); Sodium 142 mmol/L (137-145)
[2024-02-25 14:28] LABS: INR 0.9; Prothrombin Time 12.9 Seconds (11.1-14.7)
[2024-02-25 14:29] LABS: Partial Thromboplastin Time 29.5 Seconds (22.3-36.8)
--- NOTE | 2024-02-25 14:36 | ED.ABDPAIN ---
HPI - Abdominal Pain General Chief Complaint: Abdominal Pain Stated Complaint: possible pancreatitis Time Seen by Provider: 02/25/24 13:40 History of Present Illness HPI narrative: 58-year-old female presenting to the emergency department for evaluation for persistent abdominal pain. Patient does have longstanding history of lupus. Patient has had multiple issues with malnutrition and does have a PICC line in place for TPN. Patient had a previous port that stop working and Patient had her port changed on 02/21. Patient states since then she has had persistent nausea vomiting diarrhea and lower abdominal pain. Related Data Home Medications Medication Instructions Recorded Confirmed amitriptyline 25 mg tablet mg 01/29/24 atogepant 30 mg tablet (Qulipta) mg 01/29/24 ergocalciferol (vitamin D2) 1,250 01/29/24 mcg (50,000 unit) capsule gabapentin 300 mg capsule mg 01/29/24 linaclotide 290 mcg capsule mcg 01/29/24 (Linzess) lorazepam 1 mg tablet mg 01/29/24 prednisone 5 mg tablet mg 01/29/24 tizanidine 4 mg tablet mg 01/29/24 tramadol 50 mg tablet mg 01/29/24 Allergies Allergy/AdvReac Type Severity Reaction Status Date / Time adhesive Allergy Unknown Hives Verified 02/25/24 13:32 Influenza Virus Vaccines Allergy Unknown Swelling Verified 02/25/24 13:32 tetracycline Allergy Unknown Other Verified 02/25/24 13:32 cefdinir Allergy Other Verified 02/25/24 13:32 ketorolac [From Toradol] Allergy Hives Verified 02/25/24 13:32 DOXYCYCLINE CALCIUM Allergy Unknown Other Uncoded 02/25/24 13:32 DOXYCYCLINE HYCLATE Allergy Unknown Other Uncoded 02/25/24 13:32 DOXYCYCLINE MONOHYDRATE Allergy Unknown Other Uncoded 02/25/24 13:32 HYDROCODONE BIT AdvReac Unknown ITCHING Uncoded 02/25/24 13:32 Review of Systems Review of Systems: All systems reviewed & are unremarkable except as noted in HPI and below PMFSH Past Medical History Medical History Adrenal insufficiency Gastroparesis Lupus On total parenteral nutrition (TPN) Exam Narrative: APPEARANCE: Well appearing, no pain, no distress, well-nourished. HEAD: normocephalic, atraumatic. EYES: PERRLA/EOMI, conjunctivae clear. NOSE: Normal no drainage EARS:TMS clear with good light reflex. THROAT: Pharynx clear, no exudate. NECK: Supple. No adenopathy, no masses. RESPIRATORY: Airway patent, respirations nonlabored. Clear to auscultation bilaterally, no rales, rhonchi, wheezing. CARDIOVASCULAR: Regular rate and rhythm without murmurs rubs or gallops. ABDOMINAL: Soft, nondistended, normal bowel sounds, diffuse tenderness to palpation MUSCULOSKELETAL: Moves all extremities. Strength/ROM intact, No edema, No calf tenderness. NEURO: Alert. Cranial nerves II through XII intact. Grossly intact Course Vital Signs Vital signs: Vital Signs Temperature 98.2 F 02/25/24 13:33 Pulse Rate 63 02/25/24 13:33 Respiratory Rate 20 02/25/24 13:33 Blood Pressure 154/89 H 02/25/24 13:33 Pulse Oximetry 100 02/25/24 13:33 Oxygen Delivery Room Air 02/25/24 13:33 Temperature 97.8 F 02/25/24 17:05 Pulse Rate 59 L 02/25/24 17:05 Respiratory Rate 18 02/25/24 17:05 Blood Pressure 173/94 H 02/25/24 17:05 Pulse Oximetry 100 02/25/24 17:05 Oxygen Delivery Room Air 02/25/24 13:33 MDM - Abdominal Pain MDM Narrative Medical decision making narrative: 58-year-old female present to the emergency department for evaluation of upper abdominal pain and diarrhea. Patient is afebrile with no leukocytosis and a stable hemoglobin of 13.4 patient has no significant abnormalities on her CMP. Patient has a negative lactic acid and negative lipase. CT scan did show evidence of gastritis, esophagitis and diarrhea illness. Patient does take Protonix. Patient was treated with IV fluids in emergency department. Patient was advised to continue taking her Protonix to avoid alcohol and NSAIDs and to follow a
--- NOTE | 2024-02-25 15:41 | PC.NURSE ---
Dr. Mathew gave VORB OK to use PICC line
[2024-02-25] MEDS: SODIUM CHLORIDE 0.9% IV 1,000 ML 999 ML IV CONT (15:44)
[2024-02-25] MEDS: ONDANSETRON INJ 4 MG/2 ML VIAL IV PUSH (15:46)
[2024-02-25] MEDS: HYDROmorphone HCL INJ (*CRX) 1 MG/ML SYR IV PUSH (15:46)
[2024-02-25 15:49] VITALS: BP 164/85; PULSE 65; RESP 16; O2SAT 100
[2024-02-25] MEDS: PANTOPRAZOLE SODIUM IV 40 MG VIAL IV PUSH (16:07)
[2024-02-25 17:05] VITALS: BP 173/94; PULSE 59; RESP 18; TEMP 36.6; O2SAT 100
== END 2024-02-25 17:07 | disposition home or self-care (01) ==
PROVIDERS: Emergency Provider Emergency Medicine
DX: K20.90 Esophagitis, unspecified without bleeding (principal); K29.70 Gastritis, unspecified, without bleeding; R19.7 Diarrhea, unspecified; M32.9 Systemic lupus erythematosus, unspecified; E27.40 Unspecified adrenocortical insufficiency; K31.84 Gastroparesis; Z95.828 Presence of other vascular implants and grafts
CPT/HCPCS: 36415; 71045; 74177; 80053; 83605; 83690; 85025; 85610; 85730; 96374; 96375; 99284; C9113; J1170; J2405; J7030; Q9967

== ENCOUNTER 2024-08-21 10:52 | Outpatient (CLI) | payer BC, SELFPAY ==
--- NOTE | ~2024-08-21 | XR_ITS ---
CHEST RADIOGRAPH, PA AND LATERAL CLINICAL HISTORY: SOB . COMPARISON: 02/25/2024 TECHNIQUE: PA and lateral views of the chest. FINDINGS Right internal jugular central venous port catheter identified with its tip projecting over the proxi mal right atrium. Small bore catheter originates in the left upper extremity with its tip projecting over the cavoatria l junction. The remainder of the cardiomediastinal silhouette is otherwise unremarkable. The lungs are clear. Visualized osseous structures and soft tissues are unremarkable. IMPRESSION: No focal infiltrate or effusion. If clinical suspicion persists, cross-sectional imaging (noncontrast enhanced CT examination of the c hest) is suggested for further evaluation. Reviewed, dictated and finalized at location A. IMPRESSION: No focal infiltrate or effusion. If clinical suspicion persists, cross-sectional imaging (noncontrast enhanced C T examination of the chest) is suggested for further evaluation.
== END 2024-08-21 10:53 | disposition home or self-care (01) ==
LOC: MICIMG 10:56
DX: R06.02 Shortness of breath (principal)
CPT/HCPCS: 71046

== ENCOUNTER 2024-12-01 10:07 | Outpatient (CLI) | payer BC, SELFPAY ==
--- NOTE | ~2024-12-01 | XR_ITS ---
EXAMINATION: [id number] Exam Date/Time: 12/01/2024 10:12 SCRIPT WORKER HISTORY: RIB PAIN ON LEFT Comparison: 08/21/2024. RESULT: Lines, tubes, and devices: Cholecystectomy clips. Right chest implanted port, terminating at the cav oatrial junction.. Lungs and pleura: Clear. Cardiomediastinal silhouette: Stable. Other: No acute osseous or upper abdominal finding. IMPRESSION: No acute cardiopulmonary process. No acute osseous finding in the ribs. Reviewed, dictated and finalized at location K. PT WORKER
== END 2024-12-01 10:08 | disposition home or self-care (01) ==
LOC: MICIMG 10:11
DX: R07.81 Pleurodynia (principal)
CPT/HCPCS: 71111

== ENCOUNTER 2025-02-22 14:16 | Outpatient (CLI) | payer BC, SELFPAY ==
--- NOTE | ~2025-02-22 | XR_ITS ---
XR wrist RT 2V Ordering provider: Yee Dawson, ELECTRICAL ASSEMBLY TECHNICIAN History: . PSA . Comparison: None. FINDINGS: BONES: No acute fracture or dislocation. No definite scaphoid fracture. JOINT SPACES: Normal. SOFT TISSUES: Normal. IMPRESSION: No acute osseous abnormality right wrist. Reviewed, dictated and finalized at location A.
--- NOTE | ~2025-02-22 | XR_ITS ---
XR ankle LT 2V Ordering provider: Yee Dawson, ICE CREAM FREEZER HELPER History: . PSA . Comparison: None. FINDINGS: BONES: No acute fracture or dislocation. JOINT SPACES: The ankle mortise is normal. SOFT TISSUES: Normal. Calcaneus spur. IMPRESSION: No acute osseous abnormality left ankle. Reviewed, dictated and finalized at location A.
--- NOTE | ~2025-02-22 | XR_ITS ---
XR foot RT 2V Ordering provider: Yee Dawson, REFLECTOR DRILLER AND DEBURRER History: . PSA . Comparison: None. FINDINGS: BONES: No acute fracture or dislocation. Postoperative changes in the first metatarsal bone. JOINT SPACES: Narrowing of the proximal and distal interphalangeal joints. No tarsal coalition. SOFT TISSUES: Soft tissue swelling over the fifth metatarsophalangeal joint. IMPRESSION: No acute osseous abnormality of the right foot. Polyarticular osteoarthritic changes. Reviewed, dictated and finalized at location A.
--- NOTE | ~2025-02-22 | XR_ITS ---
XR foot LT 2V Ordering provider: Yee Dawson, PERSONNEL PLACEMENT SPECIALIST History: . PSA . Comparison: None. FINDINGS: BONES: No acute fracture or dislocation. JOINT SPACES: Narrowing of the proximal and distal interphalangeal joints. No tarsal coalition. SOFT TISSUES: Normal. Calcaneal spur. IMPRESSION: No acute osseous abnormality left foot. Polyarticular osteoarthritic changes. Reviewed, dictated and finalized at location A.
--- NOTE | ~2025-02-22 | XR_ITS ---
XR hand RT 2V Ordering provider: Yee Dawson, PUFFER TENDER History: . PSA . Comparison: None. FINDINGS: BONES: No acute fracture or dislocation. JOINT SPACES: Normal. SOFT TISSUES: Normal. IMPRESSION: No acute osseous abnormality right hand. Reviewed, dictated and finalized at location A.
--- NOTE | ~2025-02-22 | XR_ITS ---
XR sacroiliac joints min 3V Ordering provider: Yee Dawson, DIPLOMATIC INTERPRETER/TRANSLATOR History: . PSA . Comparison: None. FINDINGS: BONES: No acute fracture or dislocation. JOINTS: The bilateral sacroiliac joint spaces shows narrowing in the inferior portion. No bony fusion of the sacroiliac joints or bony erosions. Degenerative changes of the spine. SOFT TISSUES: Unremarkable. IMPRESSION: NO ACUTE OSSEOUS ABNORMALITY. Bilateral sacroiliitis. Reviewed, dictated and finalized at location A.
--- NOTE | ~2025-02-22 | XR_ITS ---
XR ankle RT 2V Ordering provider: Yee Dawson, MS ACCESS DATABASE DEVELOPER History: . PSA . Comparison: None. FINDINGS: BONES: No acute fracture or dislocation. Bone island versus ossifying fibroma seen in the distal tibi a JOINT SPACES: Normal. SOFT TISSUES: Normal. IMPRESSION: No acute osseous abnormality of the right ankle. Reviewed, dictated and finalized at location A.
--- NOTE | ~2025-02-22 | XR_ITS ---
XR hand LT 2V Ordering provider: Yee Dawson, BONSAI TENDER History: . PSA . Comparison: None. FINDINGS: BONES: No acute fracture or dislocation. JOINT SPACES: Well maintained. SOFT TISSUES: Unremarkable. IMPRESSION: No acute osseous abnormality left hand. Reviewed, dictated and finalized at location A.
--- NOTE | ~2025-02-22 | XR_ITS ---
XR wrist LT 2V Ordering provider: Yee Dawson, LAB INTERN History: . PSA . Comparison: None. FINDINGS: BONES: No acute fracture or dislocation. No definite scaphoid fracture. JOINT SPACES: Well maintained. SOFT TISSUES: Normal. IMPRESSION: No acute osseous abnormality left wrist. Reviewed, dictated and finalized at location A.
== END 2025-02-22 14:17 | disposition home or self-care (01) ==
LOC: MICIMG 14:19
PROVIDERS: Visit Provider Nurse Practitioner
DX: M46.1 Sacroiliitis, not elsewhere classified (principal); M79.672 Pain in left foot; M79.671 Pain in right foot; M25.532 Pain in left wrist; M25.531 Pain in right wrist; M79.642 Pain in left hand; M79.641 Pain in right hand
CPT/HCPCS: 72202; 73100; 73120; 73600; 73620

== ENCOUNTER 2025-10-14 15:34 | Outpatient (CLI) | payer BC, SELFPAY ==
--- NOTE | ~2025-10-14 | XR_ITS ---
EXAMINATION: XR knee LT min 4V, 10/14/2025 15:57 COBOL PROGRAMMER HISTORY: Pain in left/right knee COMPARISON: No comparisons available. Findings: No acute fracture or malalignment. Arthroplasty intact Soft tissues unremarkable. Impression: No acute fracture or malalignment. Reviewed, dictated and finalized at location P. L PROGRAMMER Impression: No acute fracture or malalignment.
--- NOTE | ~2025-10-14 | XR_ITS ---
EXAMINATION: XR knee RT min 4V, 10/14/2025 15:57 CRAFT MANAGER HISTORY: Pain in left/right knee COMPARISON: No comparisons available. Findings: No acute fracture or malalignment. Arthroplasty intact Soft tissues unremarkable. Impression: No acute fracture or malalignment. Reviewed, dictated and finalized at location P. T MANAGER Impression: No acute fracture or malalignment.
== END 2025-10-14 15:35 | disposition home or self-care (01) ==
DX: M25.561 Pain in right knee (principal); M25.562 Pain in left knee
CPT/HCPCS: 73564